=== PATIENT | female | born 1985 | race Caucasian/White ===

== ENCOUNTER 2021-10-21 23:00 | Emergency (ER) | payer OTHER, SELFPAY ==
--- NOTE | ~2021-10-21 | XR_ITS ---
EXAMINATION: XR CHEST CLINICAL INFORMATION: Overdose COMPARISON: None TECHNIQUE: Frontal view of the chest was obtained. FINDINGS: The lungs are well expanded. There is no focal consolidation, edema, or effusion. No pneumothorax. The cardiomediastinal silhouette is within normal limits. No acute osseous abnormality. XR/XR chest 1V IMPRESSION: Clear lungs.
--- NOTE | ~2021-10-21 | XR_ITS ---
EXAMINATION: XR HAND, RIGHT CLINICAL INFORMATION: Hand pain COMPARISON: None TECHNIQUE: PA, lateral, and oblique views of the right hand. FINDINGS: No fracture or dislocation. Alignment is anatomic. Joint spaces are maintained. The soft tissues are unremarkable. XR/XR hand RT 2V IMPRESSION: Normal right hand.
[2021-10-21 23:08] VITALS: BP 132/85; BP 147/104; PULSE 133; PULSE 140; RESP 17; O2SAT 94; O2SAT 95; BMI 34.6
--- NOTE | 2021-10-21 23:24 | PC.NURSE ---
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 pt reports taking 1 bag of heroin nasally, 5mg cocaine IV, found unresponsive by bystander. bystander gave 2x4mg [place] naloxone, PD gave an additional 2x4mg [place] naloxone for a total 16mg. pt alert and orientedx3 on EMS arrival. pt c/o nausea, 1/10 headache. 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 ED provider in room.
--- NOTE | 2021-10-21 23:26 | ED.OVERDOSE ---
HPI - Overdose General Chief Complaint: Overdose Stated Complaint: od Time Seen by Provider: 10/22/21 01:10 Source: patient and EMS Mode of arrival: EMS Limitations: no limitations History of Present Illness HPI Narrative: 35-year-old female presents via EMS for cocaine and heroin overdose. She was found unresponsive by a bystander, bystander gave 8 mg of intranasal Narcan, and additional 8 mg of Narcan intranasal was given by EMS once they arrived on scene. After 16 mg of Narcan patient became alert oriented, was nauseous, and had reported a headache. She states that this was an accidental overdose, she is currently in a program, does not use every day, and is not interested in detox. complaint: accidental overdose Onset (ago): minute(s) (Several minutes prior to arrival) Context: Intentional Overdose: drug/ETOH problems Context: Accidental Overdose: wanted to get high Treatments Prior to Arrival: narcan Related Data Allergies Allergy/AdvReac Type Severity Reaction Status Date / Time No Known Allergies Allergy Verified 10/21/21 23:07 Review of Systems Review of Systems: Constitutional: No Fever, No Chills ENT/Mouth: No sore throat, No Rhinorrhea Eyes: No Eye Pain, No Swelling, No Redness Cardiovascular: No Chest Pain, No SOB Respiratory: No Cough, No Sputum Gastrointestinal: No Nausea, No Vomiting, No Diarrhea, No abdominal Pain Genitourinary: No Dysuria, No Hematuria Musculoskeletal: No joint pain, No Myalgias, No Joint Swelling Skin: No Skin Lesions, No rash Neuro: No Weakness, No Numbness, No Loss of Consciousness, No Dizziness, No Headache Psych: Positive cocaine and heroin overdose. No Anxiety, No Depression, No SI/HI/AH/VH Heme/Lymph: No Bruising, No Bleeding,No Lymphadenopathy Endocrine: No Polyuria, No Polydipsia Yes all other systems are reviewed and are negative PMFSH Past Medical History Attestation statement: The following information was validated with the patient. 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 Opioid use Pituitary tumor PTSD (post-traumatic stress disorder) Social History Social History Alcohol intake: current Alcohol intake frequency: a few times a week Alcohol type: hard liquor Patient Tobacco Use Status: Former Tobacco user Use of substances other than those prescribed or required for medical reasons: Yes Substance Use Type: Crack/Cocaine and Heroin Last Used Substance: Just Prior to Admission Patient : No Physical Exam Vital Signs: Vital Signs: Last Vital Signs Pulse 114 H 10/22/21 00:32 Resp 16 10/22/21 00:32 BP 147/86 H 10/22/21 00:32 Pulse Ox 94 10/22/21 00:32 O2 Del Method 10/22/21 00:32 BMI result Body Mass Index 34.6 Appearance: Alert. Oriented X3. No acute distress. Eyes: Pupils equal, round and reactive to light. EOMI. Sclera nonicteric. ENT: Pharynx normal. Moist mucous membranes. Neck: Normal inspection. Neck supple. CVS: Tachycardic heart rate and rhythm. Apical pulse equal pulses to extremities. Respiratory: No respiratory distress. Lung sounds clear to auscultation all lobes. No tracheal stridor. Abdomen: Soft and nontender. Skin: Skin warm and dry. Normal skin color. Normal skin turgor. Extremities: No lower extremity edema. Moves all extremities against resistance. Neuro: No motor deficit. No sensory deficit. Cranial nerves 2-12 intact. Course Course Course Narrative: 35-year-old female presents via EMS for heroin and cocaine overdose. Received is total of 16 mg of intranasal Narcan. Patient is alert oriented upon my evaluation. Polite, cooperative, answering questions in complete sentences. Patient states that she is in a program at this time, does not feel that she needs detox because she has enough resources to assist her. States that she used heroin and cocaine earlier today, was not attempting suicide, does not have suicidal or homicidal ideations. Heart rate is in the 130s, consistent with cocaine abuse. Will order Ativan, chest x-ray, x-ray of the right hand because she is complaining of hand pain, and monitor. Patient agrees with this plan. 01:06 chest x-ray negative. Vital signs are stable and within normal limits. Patient continues to be alert oriented x4, answering questions politely and appropriately, lung sounds clear to auscultation all lobes. No tracheal stridor. Low risk for pulmonary edema at this time. Hand x-ray is negative. Plan of care to discharge home. Patient verbalized understanding of and agrees to plan of care discharge home. Relies understanding of signs and symptoms indicating need for emergent intervention. MDM - Overdose Differential Diagnosis Differential diagnosis: Likely cocaine intoxication and drug overdose Medical Records Attestation: I reviewed the patient's medical records. Lab Data Labs: Lab Results 10/21/21 10/21/21 Range/Units 23:56 23:56 Urine Color YELLOW Urine Appearance CLEAR Urine pH 7.5 (5.0-8.0) Ur Specific [place] 1.020 (1.005-1.025) Urine Protein TRACE (NEG-TRACE) MG/DL Urine Glucose (UA) NEG (NEG) MG/DL Urine Ketones NEG (NEG) MG/DL Urine Blood NEG (NEG) Urine Nitrite NEG (NEG) Ur Leukocyte Esterase NEG (NEG) Urine RBC 0-2 (0) /HPF Urine WBC 1-4 (0-4) /HPF Ur Squamous Epith Cells 2+ /LPF Urine Bacteria 1+ /LPF Urine Mucus TRACE /LPF Urine Opiates Screen Not Detected (Not Detect) Urine Fentanyl Screen POSITIVE H (Not Detect) Ur Barbiturates Screen Not Detected (Not Detect) Ur Phencyclidine Scrn Not Detected (Not Detect) Ur Amphetamines Screen Not Detected (Not Detect) Urine Cocaine Screen POSITIVE H (Not Detect) U Marijuana (THC) Screen Not Detected (Not Detect) Imaging Data Chest x-ray: Attestation: I personally reviewed and interpreted this imaging study as follows: Radiologist's impression: EXAMINATION: XR CHEST CLINICAL INFORMATION: Overdose COMPARISON: None TECHNIQUE: Frontal view of the chest was obtained. FINDINGS: The lungs are well expanded. There is no focal consolidation, edema, or effusion. No pneumothorax. The cardiomediastinal silhouette is within normal limits. No acute osseous abnormality. XR/XR chest 1V IMPRESSION: Clear lungs. Hand x-ray: Attestation: I personally reviewed and interpreted this imaging study as follows: Radiologist's impression: EXAMINATION: XR HAND, RIGHT CLINICAL INFORMATION: Hand pain? COMPARISON: None? TECHNIQUE: PA, lateral, and oblique views of the right hand. FINDINGS: No fracture or dislocation. Alignment is anatomic. Joint spaces are maintained. The soft tissues are unremarkable.? XR/XR hand RT 2V IMPRESSION: Normal right hand. Discharge Plan Discharge Clinical Impression: Drug overdose, Cocaine intoxication Patient Disposition: Home, Self-Care Instructions: Cocaine Abuse (ED), Adult Overdose (ED) Additional Instructions: Continue with your outpatient program. Consider detox. Thank you for choosing this emergency department for evaluation. Please follow-up with primary care physician as needed. Return to the emergency department for any new, concerning, or worsening symptoms.
[2021-10-21] MEDS: LORazepam 2 MG/ML VIAL 1 MG IVPUSH (23:50)
[2021-10-21] MEDS: 0.9 % Sodium Chloride 1,000 ML 999 ML IVCONT (23:50)
[2021-10-22 00:05] LABS: Appearance Urine CLEAR; Color Urine YELLOW; Glucose Urine UA NEG (NEG); Leukocyte Esterase Urine NEG (NEG); Nitrite Urine NEG (NEG); PH 7.5 (5.0-8.0); Urine Blood NEG (NEG); Urine Ketones NEG (NEG); Urine Protein TRACE MG/DL (NEG-TRACE)
[2021-10-22 00:11] LABS: Bacteria Urine 1+ /LPF; Mucus Urine TRACE /LPF; RBC Urine 0-2 /HPF (0); Squamous Epithelial Cell Urine 2+ /LPF
[2021-10-22 00:14] LABS: Fentanyl, urine POSITIVE (Not Detect)
[2021-10-22] MEDS: Acetaminophen 325 MG TABLET 650 MG PO (00:22)
--- NOTE | 2021-10-22 00:23 | PC.NURSE ---
pt medicated for 4/10 headache.
[2021-10-22 00:24] LABS: Amphetamine Screen Urine Not Detected (Not Detect); Barbiturates, Urine Not Detected (Not Detect); Cannabinoid Screen Urine Not Detected (Not Detect); Cocaine Screen Urine POSITIVE (Not Detect); Opiate Screen Urine Not Detected (Not Detect); Phencyclidine Screen Urine Not Detected (Not Detect)
[2021-10-22 00:32] VITALS: BP 147/86; PULSE 114; RESP 16; O2SAT 94
[2021-10-22 11:48] LABS: Benzodiazepines Screen Urine NOT DETECTED (Not Detect)
== END 2021-10-22 01:27 | disposition home or self-care (01) ==
LOC: HO.ED 10-22 01:26
PROVIDERS: Nurse Practitioner Family; Emergency Provider Internal Medicine
DX: T40.5X1A Poisoning by cocaine, accidental (unintentional), initial encounter (principal); T40.1X1A Poisoning by heroin, accidental (unintentional), initial encounter; R40.4 Transient alteration of awareness; Y92.410 Unspecified street and highway as the place of occurrence of the external cause; F14.120 Cocaine abuse with intoxication, uncomplicated; M79.641 Pain in right hand
CPT/HCPCS: 71045; 73120; 80307; 81001; 96361; 96374; 99284; 99285; J2060